=== PATIENT | female | born 1980 | race Caucasian/White ===

== ENCOUNTER 2023-07-24 13:47 | Emergency (ER) | payer MEDICAID, OTHER ==
[~2023-07-24 13:47] MED LIST: Iopamidol-370 76% 500 ML MDV (1 ML CHARGE) ONE
[2023-07-24 14:26] LABS: #Eosinphils 0.3 thou/uL (0.0-0.7); #Monocytes 0.6 thou/uL (0.11-0.59); #Neutrophils 7.9 thou/uL (1.40-6.50); %Basophils 0.3 % (0.0-1.0); %Eosinophils 2.3 % (0.0-10.0); %Lymphocytes 22.7 % (21.0-51.0); %Monocytes 5.6 % (0.0-10.0); %Neutrophils 68.6 % (42.0-75.0); Hematocrit 41.7 % (36.0-47.0); Hemoglobin 14.1 g/dL (12.0-16.0); Mean Corpuscular HGB CONC 33.8 g/dL (32.0-36.0); Mean Corpuscular Hemoglobin 29.7 pg (27.0-31.0); Mean Corpuscular Volume 87.8 fl (78.0-98.0); Mean Platelet Volume 9.7 fL (7.4-10.4); Platelet Count 345 10x3/uL (130-400); RBC Distribution Width 12.8 % (11.5-14.5); Red Blood Cell (RBC) Count 4.75 mill/uL (4.20-5.40); White Blood Cell (WBC) Count 11.5 10x3/uL (4.8-10.8)
[2023-07-24 14:52] LABS: ALT (SGPT) 45 U/L (8-55); AST (SGOT) 30 U/L (5-34); Albumin 4.4 g/dL (3.5-5.0); Alkaline Phosphatase 74 U/L (40-110); Anion Gap 13 mmol/L (10-20); BUN (Urea Nitrogen) 9 mg/dL (7.0-18.7); Bilirubin, Total 0.3 mg/dL (0.2-1.2); Calc. Creatinine Clearance 0 mL/min (70-130); Calcium 9.2 mg/dL (7.8-10.44); Carbon Dioxide 23 mmol/L (22-29); Chloride 103 mmol/L (98-107); Estimated GFR 110; Globulin 3.1 g/dL (2.4-3.5); Glucose 132 mg/dL (70-105); Potassium 3.3 mmol/L (3.5-5.1); Protein, Total 7.5 g/dL (6.0-8.3); Sodium 136 mmol/L (136-145)
[2023-07-24] MEDS ORDERED: Aspirin Chewable 81 MG TAB ONE (16:52)
[2023-07-24] MEDS ORDERED: Potassium Chloride 20 MEQ TAB ONE (16:52)
[2023-07-24 17:38] LABS: T4 9.86 ug/dL (4.87-11.72); Thyroid Stimulating Hormone 3.2299 uIU/mL (0.35-4.94); Troponin I Less than 0.010 ng/mL (< 0.028)
[2023-07-24] MEDS ORDERED: Dexamethasone 10 MG/ML VIAL ONE (18:08)
== END 2023-07-24 18:55 | disposition home or self-care (01) ==
LOC: ERS 13:47
DX: M79.602 Pain in left arm (principal); M25.512 Pain in left shoulder; R59.9 Enlarged lymph nodes, unspecified; E03.9 Hypothyroidism, unspecified; I10 Essential (primary) hypertension; Z79.899 Other long term (current) drug therapy
CPT/HCPCS: 36415; 71275; 80053; 84436; 84443; 84484; 85025; 93005; J1100; Q9967